=== PATIENT | male | born 1940 | race African-American/Black ===

== ENCOUNTER 2018-03-08 13:20 | Emergency (ER) | payer MEDICARE, OTHER ==
[~2018-03-08] VITALS: Ht 193 cm; Wt 109.8 kg
[~2018-03-08 13:20] MED LIST: ASPI-612 PO; ATEN50TA PO; CALC600T4 PO; CARB15DR25 OP; CHOL10003 PO; CLOB15OI3 TP; CLON2TAB9 PO; HYDR25CA75 PO; HYDR25TA PO; LISI-334 PO; MIRT30TA3 PO; MULT1CAP15 PO; OMEP20CA9 PO; OXYB10TA PO; OXYB5TAB7 PO; RANI150T2 PO; SIMV20TA3 PO; SIMV40TA3 PO; TRAM50TA PO; WARF7.5T45 PO
--- NOTE | 2018-03-08 14:24 | RAD ---
Pelvis with right hip, 3 views, 03/08/2018: HISTORY: Twisting injury, pain No fracture or dislocation is identified. There is minimal narrowing of both hip joints. Surgical clips are evident in the lower pelvis. IMPRESSION: No acute bony abnormality is detected. Electronically signed by: Mir Medeiros MD (03/08/2018 2:20 PM) [facility]
--- NOTE | 2018-03-08 14:47 | PHYS DOC ---
Past Medical History Past Medical History: Anxiety, Cancer, COPD, High Cholesterol, Hypertension, Other Additional Past Medical Histor: prostate cancer,PE Past Surgical History: Other Additional Past Surgical Histo: prostate cancer,VASECTOMY Alcohol Use: None Drug Use: None Adult General Chief Complaint Chief Complaint: HIP PAIN [facility] HPI Patient is a 77 year old male who presents with right hip pain. Patient states he was standing 2 days earlier when he twisted to the left. He felt something pop in the right hip. Since that time, he has been unable to weight- bear and has had ongoing pain. The patient states he has been stuck in his bedroom simply going from bed to the bathroom as needed since that time. He did not have any more significant injury. No fever or chills. He has not been ill lately otherwise. Review of Systems Review of Systems Constitutional: Denies fever Eyes: Denies change in visual acuity, redness HENT: Denies nasal congestion or sore throat Respiratory: Denies cough or shortness of breath Cardiovascular: No additional information not addressed in HPI GI: Denies abdominal pain Musculoskeletal: Denies back pain Integument: Denies rash or skin lesions All other systems were reviewed and found to be within normal limits, except as documented in this note. Allergies Allergies Allergies Coded Allergies Type Severity Reaction Last Updated Verified amlodipine Allergy Intermediate 03/08/18 Yes Physical Exam Physical Exam Constitutional: Well developed, well nourished, no acute distress, non-toxic appearance HENT: Normocephalic, atraumatic, bilateral external ears normal, oropharynx moist Eyes: PERRLA, EOMI, conjunctiva normal Cardiovascular:Heart rate regular rhythm, no murmur Lungs & Thorax: Bilateral breath sounds clear to auscultation Abdomen: Bowel sounds normal, soft, no tenderness Skin: Warm, dry, no erythema, no rash Extremities: + pain with flexion at the hip. Pain is located over the right groin area. No pain with patient in MADALYN position and compression of the joint. No pain with IR or ER of the right hip. Neurologic: Alert and oriented X 3, normal motor function, normal sensory function Psychologic: Affect normal, judgement normal, mood normal Current Patient Data Vital Signs Vital Signs Date Time Temp Pulse Resp B/P (MAP) Pulse Ox O2 Delivery O2 Flow Rate FiO2 03/08/18 13:27 98.1 62 18 161/74 (103) 99 Room Air 98.1 EKG EKG [] Radiology/Procedures Radiology/Procedures XR of right hip: No fracture or dislocation is identified. There is minimal narrowing of both hip joints. Surgical clips are evident in the lower pelvis. IMPRESSION: No acute bony abnormality is detected. Course & Med Decision Making Course & Med Decision Making Pertinent Labs and Imaging studies reviewed. (See chart for details) Patient was evaluated in the ER for atraumatic pain in the right hip area. On physical exam, he had 5 over 5 motor strength with flexion and extension at the hip. Also with abduction and abduction. Compression of the joint was not painful. Plain film x-ray did not reveal acute pathology. He subsequently underwent CT scan which also did not reveal bony abnormality. There is some suspicion for soft tissue damage Nicolas on his history of present illness. Patient is discharged home today. He is advised to use his walker full-time compared to his baseline status when he minimally uses a walker. He is advised of the risk of fall and sustaining additional more acute injury and he seems to understand. He is advised to follow-up with primary care doctor. He was advised to use ibuprofen as needed for pain. Return to the ER for any new or worsening symptoms. The patient was agreeable to this plan of care. He was discharged home. Dragon Disclaimer Dragon Disclaimer This electronic medical record was generated, in whole or in part, using a voice recognition dictation system. Departure Departure Disposition: 01 HOME, SELF-CARE Condition: GOOD Referrals: VANI HELMS MD (PCP) GALLO ARROYO DO Mar 08, 2018 14:47
--- NOTE | 2018-03-08 16:01 | RAD ---
CT of the right hip without contrast, 03/08/2017: HISTORY: Hip pain, injury Noncontrast scans were obtained with multiplanar reconstructions produced. Artifacts arising from pelvic surgical clips partially degrade image quality. No fracture or dislocation is identified. There is mild narrowing of the right hip joint with minimal marginal spurring. The periarticular right hip soft tissues are unremarkable. Moderate aortoiliac calcific plaquing is present. Moderate degenerative changes are noted in the lower lumbar spine and at the right sacroiliac joint. IMPRESSION: 1. Mild to moderate degenerative changes. 2. No acute bony abnormality is detected. PQRS Compliance Statement: One or more of the following individualized dose reduction techniques were utilized for this examination: 1. Automated exposure control 2. Adjustment of the mA and/or kV according to patient size 3. Use of iterative reconstruction technique Electronically signed by: Mir Medeiros MD (03/08/2018 3:56 PM) [facility]
[2018-03-08 16:42] VITALS: BP 156/72
== END 2018-03-08 16:42 | disposition home or self-care (01) ==
LOC: ER 13:20
DX: S79.911A Unspecified injury of right hip, initial encounter (principal); I10 Essential (primary) hypertension; E78.00 Pure hypercholesterolemia, unspecified; J44.9 Chronic obstructive pulmonary disease, unspecified; Z88.8 Allergy status to other drugs, medicaments and biological substances; X50.9XXA Other and unspecified overexertion or strenuous movements or postures, initial encounter; Y93.89 Activity, other specified; Y92.89 Other specified places as the place of occurrence of the external cause; Y99.8 Other external cause status
CPT/HCPCS: 73502; 73700; 99284-25